=== PATIENT | female | born 1940 | race Caucasian/White ===

== ENCOUNTER → 2018-05-24 | Day surgery (SDC) | payer OTHER, MEDICARE ==
--- NOTE | 2018-05-25 06:34 | OP ---
DATE OF OPERATION: 05/24/2018 PREOPERATIVE DIAGNOSIS: Left breast microcalcifications on mammography. POSTOPERATIVE DIAGNOSIS: Left breast microcalcifications on mammography. PROCEDURE: Left stereotactic needle biopsy with clips. SURGEON: Nicole Bermudez MD ANESTHESIA: Local. COMPLICATIONS: None. This was a sterile procedure. INDICATIONS FOR PROCEDURE: Patient presented for a screening mammogram that noted increasing microcalcifications in the upper inner left breast. My recommendation was biopsy. The procedure of a stereotactic needle biopsy with clips was discussed and all the questions answered. PROCEDURE IN DETAIL: Patient was brought to [facility] [place], laid prone on the [place] table. Using the cranial approach, the calcifications in the upper inner left breast were identified. A sterile prep was obtained. A target was chosen, there was a positive stroke margin. Using Betadine and 1% lidocaine, a 10-gauge Suros device was used, inserted into the breast, and several cores from this area were obtained. Cores showed calcifications within them. That was handled in the usual calcification protocol. A clip was deployed in the area. Hemostasis was ensured with direct pressure. The incision was closed with Steri-Strips. She tolerated the procedure well, left the breast imaging center in good condition. NICOLE BERMUDEZ M.D. [id number]
--- NOTE | 2018-05-25 19:24 | PATH ---
Surgical Pathology Report Patient Name: JOSE ELLIS [facility]. Rec. #: [id number] /Age/Gender: 1940 (Age: 78) / F Account: [id number] Location: [facility] Taken: 05/24/2018 Received: 05/24/2018 Reported: 05/25/2018 Physicians: Ashley Herron M.D. Specimen(s) Received A: LEFT BREAST SPECIMEN WITH CALCIFICATIONS B: LEFT BREAST SPECIMEN WITHOUT CALCIFICATIONS Clinical History None given Final Diagnosis A. LEFT BREAST SPECIMEN WITH CALCIFICATIONS, STEREOTACTIC BIOPSY: BREAST TISSUE WITH FIBROADENOMATOID CHANGE AND ASSOCIATED CALCIFICATIONS. B. LEFT BREAST SPECIMEN WITHOUT CALCIFICATIONS, STEREOTACTIC BIOPSY: BREAST TISSUE WITH FOCAL MILD PERIDUCTAL CHRONIC INFLAMMATION, STROMAL FIBROSIS, AND MICROCALCIFICATIONS. Electronically Signed Usman Saenz M.D. Gross Description A. Received in formalin labeled "left breast with calcifications," are 8 randolph-yellow, cylindrical portions of fibroadipose tissue ranging from 0.6-5.0 cm in length and averaging 0.3 cm in diameter. The specimens are submitted in toto in 2 cassettes. B. Received in formalin labeled "left breast without calcification," are 6 randolph-yellow, cylindrical portions of fibroadipose tissue ranging from 0.6-4.0 cm in length and averaging 0.3 cm in diameter. The specimens are submitted in toto in 2 cassettes. Time to formalin fixation: 5 minutes Total formalin fixation time: Approximately 6 hours. /05/24/201805/24/2018
== END | disposition home or self-care (01) ==
LOC: FMAMMOTONE 07:17
PROVIDERS: ATTEND Surgery
PROC: 0HBU3ZX Excision of Left Breast, Percutaneous Approach, Diagnostic (ICD-10-PCS; principal; 2018-05-24)
DX: N60.42 Mammary duct ectasia of left breast (principal); N64.89 Other specified disorders of breast; R92.1 Mammographic calcification found on diagnostic imaging of breast
CPT/HCPCS: 19081; 87899; 88305-TC; A4648

== ENCOUNTER 2020-09-03 04:33 | Day surgery (SDC) | payer OTHER, MEDICARE ==
[2020-09-01 16:34] VITALS: BMI 22.2
[2020-09-03] MEDS ORDERED: MIDAZOLAM HCL 2 MG/2 ML SINGLE DOSE VIAL ONE (14:01)
[2020-09-03] MEDS ORDERED: PROPOFOL 20 ML ONE (14:01)
[2020-09-03] MEDS ORDERED: ACETAMINOPHEN 1000 MG/100 ML VIAL (NON FORMULARY) IVPB ONE (14:18)
[2020-09-03] MEDS ORDERED: ceFAZolin SODIUM 1 GM VIAL IVPB ONE (14:21)
[2020-09-03] MEDS ORDERED: DEXTROSE 5%-0.45% SALINE 1,000 ML IV SCH (14:30)
[2020-09-03] MEDS ORDERED: oxyCODONE HCL 5 MG TABLET PO PRN (15:05)
[2020-09-03] MEDS ORDERED: ONDANSETRON 4 MG/2 ML VIAL IVPUSH PRN (15:05)
[2020-09-03] MEDS ORDERED: LACTATED RINGERS SOLUTION 1,000 ML IV SCH (15:15)
[2020-09-03 18:05] VITALS: TEMP 98.2
[2020-09-03 18:10] VITALS: BP 160/79; PULSE 69
== END 2020-09-03 18:17 | disposition home or self-care (01) ==
LOC: JASU-SURG 04:33
PROVIDERS: ATTEND Urology
PROC: 0T5B8ZZ Destruction of Bladder, Via Natural or Artificial Opening Endoscopic (ICD-10-PCS; principal; 2020-09-03 14:00)
DX: C67.0 Malignant neoplasm of trigone of bladder (principal)
CPT/HCPCS: 88307-TC; 94760

== ENCOUNTER 2022-02-22 04:52 | Day surgery (SDC) | payer OTHER, MEDICARE ==
[2022-02-19 13:52] VITALS: BMI 21.6
[2022-02-22] MEDS ORDERED: ceFAZolin SODIUM 1 GM VIAL ONE (08:41)
[2022-02-22] MEDS ORDERED: TETRACAINE/BENZOCAINE/BUTAMBEN 20 GM SPR TP ONE (09:13)
[2022-02-22] MEDS ORDERED: ceFAZolin SODIUM 1 GM VIAL IVPB ONE (09:26)
[2022-02-22 09:56] VITALS: TEMP 98
[2022-02-22 10:18] VITALS: PULSE 70
[2022-02-22 11:07] VITALS: BP 142/61; RESP 16
== END 2022-02-22 10:55 | disposition home or self-care (01) ==
LOC: JASU-ENDO 04:52
PROVIDERS: ATTEND Internal Medicine Gastroenterology
PROC: 0DB78ZX Excision of Stomach, Pylorus, Via Natural or Artificial Opening Endoscopic, Diagnostic (ICD-10-PCS; 2022-02-22)
PROC: 06L38CZ Occlusion of Esophageal Vein with Extraluminal Device, Via Natural or Artificial Opening Endoscopic (ICD-10-PCS; 2022-02-22)
PROC: 0DJD8ZZ Inspection of Lower Intestinal Tract, Via Natural or Artificial Opening Endoscopic (ICD-10-PCS; principal; 2022-02-22 09:00)
DX: Z12.11 Encounter for screening for malignant neoplasm of colon (principal); K55.20 Angiodysplasia of colon without hemorrhage; K57.30 Diverticulosis of large intestine without perforation or abscess without bleeding; K64.8 Other hemorrhoids; K64.4 Residual hemorrhoidal skin tags; Z86.010 Personal history of colon polyps; I85.00 Esophageal varices without bleeding; K44.9 Diaphragmatic hernia without obstruction or gangrene; K29.50 Unspecified chronic gastritis without bleeding; K76.6 Portal hypertension; K31.89 Other diseases of stomach and duodenum
CPT/HCPCS: 43239; 43244; G0105; 88305-TC; 88342-TC